=== PATIENT | female | born 1995 | race Hispanic/Latino ===

== ENCOUNTER → 2024-04-15 | Outpatient (CLI) | payer OTHER ==
[~2024-04-15] MED LIST: IOHEXOL-350 75 ML VIAL IV ONE
--- NOTE | 2024-04-15 13:24 | HMCIMG ---
CT ABDOMEN W/WO 3 PHASE REASON: ABN FINDING ON DX IMAGING OF LIVER AND BILIAR COMPARISON: None TECHNIQUE: Three-phase hepatic imaging protocol was performed with acquisition before, during and after bolus IV contrast infusion. Contrast volume was 75 cc Omnipaque 350. Oral contrast was administered as well. FINDINGS: There is moderate to marked hepatic steatosis. There are no focal liver lesions. There are no focal areas of abnormal contrast enhancement. Spleen, kidneys and pancreas appear normal. Gallbladder appears unremarkable. Adrenal glands appear normal as well. There are normal-appearing bowel loops. There is no retroperitoneal lymphadenopathy. There are no focal fluid collections and there is no free air or fluid. Anterior abdominal wall appears intact. There are no focal osseous lesions. IMPRESSION: 1. Moderate to marked hepatic steatosis. 2. Otherwise negative CT abdomen using three-phase hepatic imaging technique.
== END | disposition home or self-care (01) ==
LOC: RAH 10:19
PROVIDERS: ATTEND Internal Medicine
DX: K76.0 Fatty (change of) liver, not elsewhere classified (principal); R93.2 Abnormal findings on diagnostic imaging of liver and biliary tract
CPT/HCPCS: 74170; Q9967

== ENCOUNTER → 2024-05-20 | Outpatient (CLI) | payer OTHER ==
--- NOTE | 2024-05-20 10:45 | HMCIMG ---
UPPER GI TRACT, WO KUB REASON: Heartburn; Abdominal distension (gaseous); Nausea and vomiting. COMPARISON: None TECHNIQUE: Biphasic upper GI series was performed. FINDINGS: There is no obstruction to the antegrade passage of barium from mouth through jejunum. A normal esophageal stripping wave is seen. No evidence of hiatal hernia is seen. There is gastroesophageal reflux into the level of mid thoracic esophagus. Duodenal bulb and sweep are unremarkable. Stomach is well distended without ulceration or mass lesion. IMPRESSION: No obstruction is seen. Gastroesophageal reflux to the level of mid thoracic esophagus.
== END | disposition home or self-care (01) ==
LOC: RAH 10:03
PROVIDERS: ATTEND Internal Medicine Gastroenterology
DX: K21.9 Gastro-esophageal reflux disease without esophagitis (principal); R14.0 Abdominal distension (gaseous); R12 Heartburn; R11.0 Nausea
CPT/HCPCS: 74240